=== PATIENT | female | born 1975 | race Caucasian/White ===

== ENCOUNTER 2019-07-01 12:37 | Outpatient (CLI) | payer BC, SELFPAY ==
--- NOTE | ~2019-07-01 | US_ITS ---
EXAMINATION: US venous doppler LE RT DATE: 07/01/2019 13:50 INDICATION: Right lower limb pain. TECHNIQUE: Grayscale ultrasound images without and with compression and Doppler ultrasound images of the right lower extremity veins were obtained. COMPARISON: None. FINDINGS: The visualized portions of right common femoral vein, profunda (deep) femoral vein, femoral vein, pop liteal vein, peroneal veins, posterior tibial veins, and greater saphenous vein outflow are patent. T here is a large Medina's cyst. IMPRESSION: 1. No deep venous thrombosis. 2. Large right-sided Medina's cyst. Reviewed, dictated and finalized at location A.
== END 2019-07-01 12:38 | disposition home or self-care (01) ==
LOC: ANHIMG 12:50
DX: M25.561 Pain in right knee (principal); M71.21 Synovial cyst of popliteal space [Baker], right knee
CPT/HCPCS: 93971

== ENCOUNTER 2019-07-13 13:34 | Outpatient (CLI) | payer BC, SELFPAY ==
--- NOTE | ~2019-07-13 | MR_ITS ---
EXAMINATION: MR knee RT wo con DATE: 07/13/2019 14:46 INDICATION: Synovial cyst of the right popliteal space. Right knee pain. TECHNIQUE: Magnetic resonance imaging (MRI) of the right knee was performed without intravenous contr ast. Sequences included coronal PD-weighted FSE, coronal PD-weighted FS FSE, sagittal T2-weighted FS E, sagittal PD-weighted FS FSE and axial PD weighted fat saturated FSE. COMPARISON: None. FINDINGS: Evaluation, particularly of the menisci and cartilage in the medial and lateral compartments and to a lesser degree in the patellofemoral compartment is significantly limited by motion blurring or artif act to some degree on all of the sagittal and coronal sequences. Medial compartment: Medial meniscus is normal. No definitive chondromalacia in the medial compartment. Lateral compartment: Likely tear of the lateral meniscus with complex appearance at the anterior horn and with longitudina l horizontal configuration at the posterior horn. Extensive high-grade chondromalacia with cartilage loss, irregular cortical contour and subarticular edema along the anterior weightbearing lateral femo ral condyle and juxtaposed central to lateral aspect of the lateral tibial plateau. Patellofemoral compartment: Deep chondral ulceration and fissuring with underlying subarticular edema at the lateral patellar fac et and apical ridge. Deep chondral fissuring without degenerative subarticular changes at the cephala d aspect of the lateral trochlea. Ligaments and tendons: Anterior and posterior cruciate ligaments are normal. The medial collateral ligament and fibular breana ateral ligament complex are normal. The extensor mechanism is normal. The visualized medial and later al hamstring tendons as well as the iliotibial band are normal. Fluid: Large right knee joint effusion. There is a partial suprapatellar plical band. Mild synovitis at the suprapatellar pouch and along the margins of Hoffa's fat pad. No loose osteochondral bodies identifie d. Additional mild synovitis within a large Medina's cyst which measures 7.2 x 2.9 x 3.4 cm. Osseous/other: 3 mm lateral patellar subluxation. Alignment is otherwise normal. No fracture or pathologic marrow re placing process. IMPRESSION: 1. Evaluation particularly of the menisci and cartilage is significantly limited by motion. 2. 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 3. Additional high-grade patellofemoral chondromalacia. 4. Likely reactive large right knee joint effusion. 5. Large Medina's cyst. Reviewed, dictated and finalized at location A. IMPRESSION: 1. Evaluation particularly of the menisci and cartilage is significantly limite d by motion. 2. 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 3. Additional high-grade patellofemoral chondromalacia. 4. Likely reactive large right knee joint effusion. 5. Large Medina's cyst.
== END 2019-07-13 13:40 | disposition home or self-care (01) ==
DX: M71.21 Synovial cyst of popliteal space [Baker], right knee (principal); S83.281A Other tear of lateral meniscus, current injury, right knee, initial encounter; M94.261 Chondromalacia, right knee; M25.461 Effusion, right knee
CPT/HCPCS: 73721

== ENCOUNTER 2019-07-24 15:14 | Emergency (ER) | payer BC, SELFPAY ==
[2019-07-24 15:30] VITALS: BP 154/103; PULSE 84; RESP 20; TEMP 36.6; O2SAT 97
--- NOTE | 2019-07-24 16:02 | ED.FEMALEGU ---
HPI - Female Genitourinary General Chief complaint: Urogenital-Female Stated complaint: uti Time Seen by Provider: 07/24/19 16:05 Source: patient and RN notes reviewed Mode of arrival: ambulatory Limitations: no limitations History of Present Illness HPI Narrative: 23-year-old female presents with concern for urine frequency, urgency, suprapubic pressure. Reports symptoms started this morning. She denies fever, flank pain, general malaise, nausea, vomiting. Reports discolored urine MD elicited complaint: UTI Related Data Home Medications Medication Instructions Recorded Confirmed cetirizine mg 07/24/19 ergocalciferol (vitamin D2) 07/24/19 ergocalciferol (vitamin D2) 07/24/19 [Vitamin D2] exemestane 07/24/19 omeprazole 07/24/19 potassium chloride meq PO 07/24/19 Allergies Allergy/AdvReac Type Severity Reaction Status Date / Time Penicillins AdvReac Mild VOMITING Verified 07/24/19 15:36 ERYTHROMYCIN LACTOBIONATE Allergy Mild VOMITING Uncoded 07/24/19 15:36 Review of Systems Review of Systems: Narrative: CONSTITUTIONAL: Denies malaise, chills, sweats, or fever. CARDIOVASCULAR: Denies chest pain, palpitations, or edema. RESPIRATORY: Denies cough or dyspnea. GASTROINTESTINAL: Denies abdominal pain, nausea, vomiting, diarrhea, bloody, or mucous stools. GENITOURINARY: Denies dysuria. Reports suprapubic pressure, frequency, urgency SKIN: Denies rash or itching. MUSCULOSKELETAL: Denies myalgia. All systems reviewed & are unremarkable except as noted in HPI and below PMFSH Social History Social History Gender identity (if verbalized by the patient): Female Comments At time of signature, agree with nursing past medical, surgical, social and family history. There is no relevant family history pertinent to the presenting complaint Exam Narrative: Exam Narrative: GENERAL: Well-appearing, well-nourished, and in no acute distress. HEAD: Normocephalic. EYES: PERRLA, conjunctivae clear. NECK: Supple. No lymphadenopathy CHEST: Clear to auscultation. No respiratory distress. HEART: Regular rate and rhythm. No murmur heard. Normal peripheral pulses. ABDOMEN: Soft, nontender upon palpation, nondistended, normal active bowel sounds, no palpable or pulsatile masses, no guarding. No CVA tenderness SKIN: Warm, dry, no rash. NEURO: Alert and oriented x3. PSYCH: Normal mood and affect Course Course Emergency Course: Patient is aware of diagnosis, understands and agrees to treatment plan. Anticipatory guidance given. Patient agrees to follow-up as directed and is aware of reasons to seek care at the emergency department. Portions of this record may have been created with voice recognition software Vital Signs Vital signs: Vital Signs Temperature 98 F 07/24/19 15:30 Pulse Rate 84 07/24/19 15:30 Respiratory Rate 20 07/24/19 15:30 Blood Pressure 154/103 H 07/24/19 15:30 Pulse Oximetry 97 07/24/19 15:30 Temperature 98 F 07/24/19 15:30 Pulse Rate 84 07/24/19 15:30 Respiratory Rate 20 07/24/19 15:30 Blood Pressure 154/103 H 07/24/19 15:30 Pulse Oximetry 97 07/24/19 15:30 Reviewed. MDM - Female Genitourinary MDM Narrative Medical decision making narrative: Exam findings show no acute concerns or changes; patient is non-toxic appearing and is in no distress. Patient is appropriate for outpatient treatment and follow-up. Differential Diagnosis Differential diagnosis: Likely urinary tract infection, vaginitis and cystitis Lab Data Labs: Urine Glucose Negative Reference Range: Negative Urine Bilirubin Negative Reference Range: Negative Urine Ketone Negative Reference Range: Negative Urine Specific [place] 1.030 Reference Range:1.001-1.035 Urine Blood 3+ Reference Range: Negative * * Urine pH
== END 2019-07-24 16:19 | disposition home or self-care (01) ==
PROVIDERS: Emergency Provider Nurse Practitioner
DX: N39.0 Urinary tract infection, site not specified (principal); I10 Essential (primary) hypertension; Z85.3 Personal history of malignant neoplasm of breast
CPT/HCPCS: 81003; 87086; 87088; 99213; G0463

== ENCOUNTER 2019-09-02 11:00 | Outpatient (RCR) | payer BC, SELFPAY ==
--- NOTE | 2019-08-22 15:46 | PTOPEVAL ---
PHYSICAL THERAPY EVALUATION AND PLAN OF CARE Thank you for referring Angelica Meyer to [facility]. I recommend Angelica participate in physical therapy 2x/week for 4 weeks followed by re-assessment to determine further skilled PT needs. Please review, sign, date and return this plan of care XAVI. I agree with and certify that the following plan of care is medically necessary. Referring Physician Date Evaluation Outpatient Past Medical History Cardiovascular History Hx Hypertension Yes Genitourinary History Hx Urinary Tract Infection Yes Musculoskeletal History Hx Orthopedic Surgery Yes: carpal Tunnel Reproductive History Hx Hysterectomy Yes Hx Other Reproductive Disorders Yes: Breast CA Psychosocial History Hx Anxiety Yes Other History Hx Cancer Yes: breast, 2018 Diagnosis right knee pain Onset 02/2019 Subjective Information Dece 2019 was experiencing Query Text:As Reported By Patient/ right knee pain. Noticed a Family lump in the back of the knee that was diagnosed as a Medina' s cyst. The pain eased until when the pain became unbearable and further studies revealed continued Medina's cyst, torn meniscus, and OA. On July 19, she received an injection and the next day she felt severe pain. On August 15 she received a 2nd cortisone injection on the medial side of the knee. This injection seems to have helped . She experiences less knee locking and less stiffness. Reports that prior to the pain starting she was walking 2-3 miles 3-4x/week and she does not feel comfortable or safe performing that distance at this time. Right Knee(s) Reported Pain Level 4 Pain Frequency Chronic,Intermittent Other Pain Description stiff Pain Aggravating Factors Walking Pain Score Pain Score 4: Self Report Lower Extremity Range of Motion Knee Range of Motion Right Knee Flexion Range of Motion - Active 120 Knee Extension Range of Motion - Active -12 Query Text: Lower Extremity Muscle Strength Testing Hip Strength Right Hip Flexion Strength 4+ Good + Hip Extension Strength 3 Fair H
--- NOTE | 2019-08-30 08:47 | PCPTNOTE ---
Patient called & cancelled scheduled appointment this date due to family emergency.
--- NOTE | 2019-09-05 09:22 | PCPTNOTE ---
Patient called & cancelled scheduled appointment this date due to sick child.
--- NOTE | 2019-09-30 08:40 | PCPTNOTE ---
PHYSICAL THERAPY DISCHARGE NOTE Patient:Angelica Meyer Date of :1975 Angelica has not returned for any further treatments since 09/02/2019, therefore she will be discharged at this time. Her initial visit was on 08/22/2019 and she attended the evaluation and 3 treatments and she cancelled 2 visits. During her treatments we perform leuko-taping to the right knee for patellar tracking as well as right LE strengthening, particularly quadriceps and gluteus medius strengthening. She was provided with home exercise program. The goals have not been assessed. Thank you for referring this patient to [facility]. Please review, sign, date and return this discharge summary XAVI. I have been updated about the patient's current status and I agree with discharge from the above service at this time. Referring Physician Date
== END 2019-10-04 13:15 | disposition home or self-care (01) ==
LOC: ANHPT 11:00
DX: M25.561 Pain in right knee (principal); M22.41 Chondromalacia patellae, right knee
CPT/HCPCS: 97110; 97140; 97161

== ENCOUNTER 2019-09-21 12:53 | Outpatient (CLI) | payer BC, SELFPAY ==
--- NOTE | ~2019-09-21 | DEXA_ITS ---
Bone Density Report Name: Angelica Meyer Age: 43 Sex: Female Ethnicity: White Date of : 1975 Indication: postmenopausal; height loss; prior fracture; cancer; hysterectomy; Referring Provider: PHYSICIAN NOT ON STAFF Study: Bone densitometry was performed. Exam Date: September 21, 2019 Accession number: [id number] Bone Density: Region BMD T-score Z-score Classification AP Spine (L1-L4) 0.810 -2.2 -1.7 Osteopenia Femoral Neck (Left) 0.622 -2.0 -1.6 Osteopenia Total Hip (Left) 0.818 -1.0 -0.7 Normal Total Hip Bilateral Avg 0.827 -0.9 -0.7 Normal Femoral Neck (Right) 0.704 -1.3 -0.9 Osteopenia Total Hip (Right) 0.835 -0.9 -0.6 Normal World Health Organization criteria for BMD impression classify patients as: Normal (T-score at or above -1.0), Osteopenia (T-score between -1.0 and -2.5), or Osteoporosis (T-score at or below -2.5). 10-year Fracture Risk(1): Major Osteoporotic Fracture 5.9% Hip Fracture 1.6% Reported Risk Factors: [place] (), Neck BMD=0.622, BMI=54.5, previous fracture, smoking (1) FRAX(R) Version 3.08. Fracture probability calculated for an untreated patient. Fracture probability may be lower if the patient has received treatment. Clinical Information Provided by Patient: Has had a low trauma fracture Smokes Has used the following medications: Vitamin D Has the following medical conditions: Cancer, Hysterectomy Patient maximum height was 60 Menopause Age: 42 Onset of menses at age 12 Number of children 3 Impression: The patient has low bone mass, based on the Total Spine T-score. The patient has an estimated ten-year risk of hip fracture of 1.6% and an estimated ten-year risk of major fracture of 5.9%, based on the WHO FRAX algorithm. The patient has risk factors, including: smoking, previous fracture. Discussion: BONE DENSITY IS LOW AT ONE OR MORE SKELETAL SITES. This patient's lowest T-score is low at one or more skeletal sites. It meets the World Health Organization's (WHO) criteria for ?low bone mass? (T-score between -1.0 and -2.5). The patient's 10-year risk of fracture as calculated by FRAX is less than the threshold where pharmacological therapy is recommended by the National Osteoporosis Foundation (NOF). However, all treatment decisions require clinical judgment and consideration of individual patient factors, including patient preferences, comorbidities, previous drug use, risk factors not captured in the FRAX model (e.g., frailty, falls, vitamin D deficiency, increased bone turnover, interval significant decline in bone density) and possible under or overestimation of fracture risk by FRAX. The patient should follow a healthful lifestyle (good nutrition with adequate calcium and vitamin D, and appropriate weight-bearing exercise). Follow-Up: Consider repeating thi
== END 2019-09-21 12:54 | disposition home or self-care (01) ==
LOC: ANHIMG 12:57
DX: C50.412 Malignant neoplasm of upper-outer quadrant of left female breast (principal); Z17.0 Estrogen receptor positive status [ER+]; M85.88 Other specified disorders of bone density and structure, other site; M85.852 Other specified disorders of bone density and structure, left thigh; M85.851 Other specified disorders of bone density and structure, right thigh
CPT/HCPCS: 77080

== ENCOUNTER 2019-11-19 01:35 | Outpatient (CLI) | payer BC, SELFPAY ==
[2019-11-19 19:30] LABS: SARS-CoV-2 RNA PCR Negative
== END 2019-11-19 01:36 | disposition home or self-care (01) ==
LOC: ANHCOVIDDT 01:36
PROVIDERS: Visit Provider Internal Medicine Gastroenterology
DX: Z01.812 Encounter for preprocedural laboratory examination (principal); Z20.828 Contact with and (suspected) exposure to other viral communicable diseases
CPT/HCPCS: 87635; C9803; U0003

== ENCOUNTER 2019-11-22 01:11 | Day surgery (SDC) | payer BC, SELFPAY ==
[2019-11-15 12:21] VITALS: BMI 54.6
--- NOTE | 2019-11-22 09:00 | PM.HPGS ---
History of Present Illness History of Present Illness Consent: Risks, benefits, and alternatives have been discussed and questions answered. Patient agrees to proceed with procedure. Chief complaint: Benign Neoplasm Of Colon Narrative: Angelica Meyer is a 44 year old female here with history of polyps Review of Systems Constitutional: Constitutional: Denies headache(s) and Denies weakness Eyes: Eyes: Denies blurry vision ENT: Reports Normal hearing present, Denies headache(s) and Denies neck pain Cardiovascular: Cardiovascular: Denies chest pain and Denies dyspnea Respiratory: Respiratory: Denies dyspnea Gastrointestinal: Gastrointestinal: Reports no additional gastrointestinal complaints Genitourinary: Genitourinary: Denies dysuria Musculoskeletal: Musculoskeletal: Denies neck pain Integumentary/Breasts: Skin/Breast: Denies dry skin Neurologic: Reports Normal hearing present, Denies headache(s) and Denies weakness Psychiatric: Psychiatric: Denies anxiety Endocrine: Endocrine: Denies change in body appearance Hematologic/Lymphatic: Hematologic/Lymphatic: Denies easy bleeding Allergic/Immunologic: Allergic/Immunologic: Denies urticaria PMFSH Past Medical History Medical History (Updated 09/29/19 @ 14:48 by Trevor Fatima MD) Adenomatous colon polyp Allergic rhinitis GERD (gastroesophageal reflux disease) Gout HCC (hepatocellular carcinoma) Hypertension Kidney disease Morbid obesity Pulmonary embolism Urolithiasis Vitamin D deficiency Surgical History Surgical History (Updated 09/21/19 @ 10:28 by Korin Tilley) H/O cardiac catheterization H/O left breast biopsy H/O lymph node biopsy H/O partial mastectomy H/O tubal ligation H/O: hysterectomy History of carpal tunnel release History of lumpectomy History of salpingo-oophorectomy History of sleeve gastrectomy Hx of lithotripsy Family History Family History (Updated 09/21/19 @ 10:35 by Korin Tilley) Mother Hypertension Crohn disease Father Hypertension Heart disease High cholesterol Other Cancer of brain Other Colon cancer Stomach cancer Grandparent Diabetes mellitus Social History Social History (Updated 11/15/19 @ 12:27 by Anni Christine RN) Smoking packs per day: 0.5 Smoking cigarettes per day: 10.0 Years smoked: 25 Smoking pack-years: 12.50 Smoking status: Former smoker Alcohol intake: never Substance use: current Substance use type: marijuana 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 Gender identity (if verbalized by the patient): Female Meds Home Medications and Allergies Home Medications Medication Instructions Recorded Confirmed Type cetirizine 10 mg PO DAILY 07/24/19 11/15/19 History ergocalciferol (vitamin D2) 50,000 unit PO WEEKLY 07/24/19 11/15/19 History [Vitamin D2] omeprazole 20 mg PO DAILY 07/24/19 11/15/19 History potassium chloride 20 meq PO DAILY 07/24/19 11/15/19 History cyanocobalamin (vitamin B-12) 1,000 mcg PO DAILY 09/21/19 11/15/19 History 1,000 mcg tablet exemestane 25 mg tablet 25 mg PO DAILY 09/21/19 11/15/19 History trazodone 50 mg PO DAILY 11/15/19 11/15/19 History triamterene-hydrochlorothiazid 1 tablet PO DAILY 11/15/19 11/15/19 History Allergies Allergy/AdvReac Type Severity Reaction Status Date / Time erythromycin base AdvReac Mild Vomiting Verified 11/21/19 11:29 Penicillins AdvReac Mild VOMITING Verified 11/15/19 12:28 venlafaxine [From Effexor] AdvReac Mild Confusion Verified 11/21/19 11:30 Exam Const: General: comfortable and no acute distress HENMT: General nose exam: Normal nares present Eyes: General: appearance normal, both eyes and all related structures Neck: Neck: no JVD Resp: Auscultation: clear to auscultation bilaterally Cardio: Rate: regular rate Rhythm: regular rhythm GI: Inspection: non-distended GI Palp: Yes Soft to palpation Skin: General skin exam:
[2019-11-22 10:47] VITALS: BP 149/97; PULSE 65; RESP 17; TEMP 36.8; O2SAT 97; BMI 53.5
--- NOTE | 2019-11-22 10:57 | WPDANESEPPF ---
Anes - Initial Pre Proc Eval Procedure: Operation Date: 11/22/19 12:00 Proposed Procedures p Screening Colonoscopy - Trevor Fatima MD Date/Time: 11/22/19 10:57 Surgeon: Trevor Fatima MD Pre Op Diagnosis: Benign Neoplasm Of Colon Patient Data Age: 44 Gender: F Height: 5 ft Weight: 124.4 kg Last Vital Signs Temp 98.3 F 11/22/19 10:47 Pulse 65 11/22/19 10:47 Resp 17 11/22/19 10:47 BP 149/97 H 11/22/19 10:47 Pulse Ox 97 11/22/19 10:47 Allergies Allergy/AdvReac Type Severity Reaction Status Date / Time erythromycin base AdvReac Mild Vomiting Verified 11/21/19 11:29 Penicillins AdvReac Mild VOMITING Verified 11/15/19 12:28 venlafaxine [From Effexor] AdvReac Mild Confusion Verified 11/21/19 11:30 Home Medications Medication Instructions Recorded Confirmed Type cetirizine 10 mg PO DAILY 07/24/19 11/15/19 History ergocalciferol (vitamin D2) 50,000 unit PO WEEKLY 07/24/19 11/15/19 History [Vitamin D2] omeprazole 20 mg PO DAILY 07/24/19 11/15/19 History potassium chloride 20 meq PO DAILY 07/24/19 11/15/19 History cyanocobalamin (vitamin B-12) 1,000 mcg PO DAILY 09/21/19 11/15/19 History 1,000 mcg tablet exemestane 25 mg tablet 25 mg PO DAILY 09/21/19 11/15/19 History trazodone 50 mg PO DAILY 11/15/19 11/15/19 History triamterene-hydrochlorothiazid 1 tablet PO DAILY 11/15/19 11/15/19 History Patient hx anesthesia problems: none Family hx anesthesia problems: none PMFSH Past Medical History Medical History (Updated 09/29/19 @ 14:48 by Trevor Fatima MD) Adenomatous colon polyp Allergic rhinitis GERD (gastroesophageal reflux disease) Gout HCC (hepatocellular carcinoma) Hypertension Kidney disease Morbid obesity Pulmonary embolism Urolithiasis Vitamin D deficiency Surgical History Surgical History (Updated 09/21/19 @ 10:28 by Korin Tilley) H/O cardiac catheterization H/O left breast biopsy H/O lymph node biopsy H/O partial mastectomy H/O tubal ligation H/O: hysterectomy History of carpal tunnel release History of lumpectomy History of salpingo-oophorectomy History of sleeve gastrectomy Hx of lithotripsy Family History Family History (Updated 09/21/19 @ 10:35 by Korin Tilley) Mother Hypertension Crohn disease Father Hypertension Heart disease High cholesterol Other Cancer of brain Other Colon cancer Stomach cancer Grandparent Diabetes mellitus Social History Social History (Updated 11/15/19 @ 12:27 by Anni Christine RN) Smoking packs per day: 0.5 Smoking cigarettes per day: 10.0 Years smoked: 25 Smoking pack-years: 12.50 Smoking status: Former smoker Alcohol intake: never Substance use: current Substance use type: marijuana 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 Questions were solicited and answers provided to the satisfaction of the patient/family/POA.
[2019-11-22] MEDS: LACTATED RINGERS 1,000 ML 150 ML IV CONT (11:04)
[2019-11-22 12:57] VITALS: BP 102/65; PULSE 86; RESP 26; O2SAT 95
[2019-11-22 13:07] VITALS: BP 118/69; PULSE 66; RESP 25; O2SAT 100
[2019-11-22 13:17] VITALS: BP 130/72; PULSE 61; RESP 18; O2SAT 100
== END 2019-11-22 13:22 | disposition home or self-care (01) ==
PROVIDERS: Visit Provider Internal Medicine Gastroenterology
PROC: 0DJD8ZZ Inspection of Lower Intestinal Tract, Via Natural or Artificial Opening Endoscopic (ICD-10-PCS; CPT 45378; principal; 2019-11-22 12:00)
DX: Z12.11 Encounter for screening for malignant neoplasm of colon (principal); K64.8 Other hemorrhoids; Z86.010 Personal history of colon polyps; I10 Essential (primary) hypertension; E66.01 Morbid (severe) obesity due to excess calories; Z68.43 Body mass index [BMI] 50.0-59.9, adult; Z98.84 Bariatric surgery status; I25.10 Atherosclerotic heart disease of native coronary artery without angina pectoris; J30.9 Allergic rhinitis, unspecified; E55.9 Vitamin D deficiency, unspecified; Z86.711 Personal history of pulmonary embolism; Z87.891 Personal history of nicotine dependence; F12.90 Cannabis use, unspecified, uncomplicated; Z85.3 Personal history of malignant neoplasm of breast; Z85.05 Personal history of malignant neoplasm of liver; Z90.10 Acquired absence of unspecified breast and nipple; Z88.1 Allergy status to other antibiotic agents; Z88.0 Allergy status to penicillin
CPT/HCPCS: 45378; J2001; J2704; J7120

== ENCOUNTER 2020-05-31 17:14 | Emergency (ER) | payer BC, SELFPAY ==
--- NOTE | ~2020-05-31 | XR_ITS ---
XR shoulder LT min 2V 05/31/2020 18:11 INDICATION: Left shoulder pain PROCEDURE: 4 views left shoulder COMPARISON: No prior studies for comparison. FINDINGS: Fracture, dislocation or subluxation is not identified. The soft tissues appear within norm al limits. No foreign bodies are identified. IMPRESSION: 1: NO ACUTE BONE OR JOINT ABNORMALITY IDENTIFIED. Reviewed, dictated and finalized at location A. IN[facility]
--- NOTE | ~2020-05-31 | XR_ITS ---
EXAMINATION: XR chest 2V 05/31/2020 18:11 INDICATION: Left-sided chest pain PROCEDURE: 2 view chest COMPARISON: No prior studies for comparison. FINDINGS: The lungs are clear. The cardiomediastinal silhouette is within normal limits. There are no pleural effusions. There is no pneumothorax suspected. IMPRESSION: 1: NO ACUTE CARDIOPULMONARY DISEASE. Reviewed, dictated and finalized at location A. [facility] [employer]
[2020-05-31 17:21] VITALS: BP 154/114; PULSE 75; RESP 14; TEMP 36.5; O2SAT 99
--- NOTE | 2020-05-31 17:24 | ECG_ITS ---
Measurements Intervals [place] Rate: 75 P: 23 TX: 173 QRS: 26 QRSD: 88 T: -11 QT: 379 QTc: 425 Interpretive Statements SINUS RHYTHM VOLTAGE CRITERIA FOR LVH BORDERLINE ST-T WAVE ABNORMALITY- ANTEROLAT/INF LEADS BORDERLINE ECG Electronically Signed On 05-31-2020 18:50:40 POLYMERIZATION SUPERVISOR by Carlos Hastings D.O.
[2020-05-31 17:37] VITALS: PULSE 75; RESP 17; TEMP 36.8; O2SAT 100
--- NOTE | 2020-05-31 17:49 | ED.CHESTPAIN ---
HPI - Chest Pain General Chief Complaint: Chest Pain Stated Complaint: left rib pain, left arm pain Time Seen by Provider: 05/31/20 17:30 Source: patient Mode of arrival: ambulatory Limitations: no limitations History of Present Illness HPI narrative: This is a 44-year-old female that presents to the emergency department for left posterior shoulder pain x1 week. Reports the pain is sharp in nature. It is worse with certain movement. No known injury or trauma. Denies fever, cough, anterior chest pain, or shortness of breath. Related Data Home Medications Medication Instructions Recorded Confirmed cetirizine 10 mg PO DAILY 07/24/19 11/15/19 ergocalciferol (vitamin D2) 50,000 unit PO WEEKLY 07/24/19 11/15/19 [Vitamin D2] omeprazole 20 mg PO DAILY 07/24/19 11/15/19 potassium chloride 20 meq PO DAILY 07/24/19 11/15/19 cyanocobalamin (vitamin B-12) 1,000 mcg PO DAILY 09/21/19 11/15/19 1,000 mcg tablet exemestane 25 mg tablet 25 mg PO DAILY 09/21/19 11/15/19 trazodone 50 mg PO DAILY 11/15/19 11/15/19 triamterene-hydrochlorothiazid 1 tablet PO DAILY 11/15/19 11/15/19 Allergies Allergy/AdvReac Type Severity Reaction Status Date / Time erythromycin base AdvReac Mild Vomiting Verified 11/21/19 11:29 Penicillins AdvReac Mild VOMITING Verified 11/15/19 12:28 venlafaxine [From Effexor] AdvReac Mild Confusion Verified 11/21/19 11:30 Review of Systems Review of Systems: Narrative: CONSTITUTIONAL: Denies fever CARDIOVASCULAR: Denies chest pain, or edema. RESPIRATORY: Denies cough or dyspnea. All systems reviewed & are unremarkable except as noted in HPI and below PMFSH Past Medical History Medical History (Updated 05/31/20 @ 19:52 by Shanti Mccarthy PA-C) Adenomatous colon polyp Allergic rhinitis GERD (gastroesophageal reflux disease) Gout HCC (hepatocellular carcinoma) Hypertension Kidney disease Morbid obesity Pulmonary embolism Urolithiasis Vitamin D deficiency Surgical History Surgical History (Updated 09/21/19 @ 10:28 by Korin Tilley) H/O cardiac catheterization H/O left breast biopsy H/O lymph node biopsy H/O partial mastectomy H/O tubal ligation H/O: hysterectomy History of carpal tunnel release History of lumpectomy History of salpingo-oophorectomy History of sleeve gastrectomy Hx of lithotripsy Family History Family History (Updated 09/21/19 @ 10:35 by Korin Tilley) Mother Hypertension Crohn disease Father Hypertension Heart disease High cholesterol Other Cancer of brain Other Colon cancer Stomach cancer Grandparent Diabetes mellitus Social History Social History (Updated 11/15/19 @ 12:27 by Anni Christine RN) Smoking packs per day: 0.5 Smoking cigarettes per day: 10.0 Years smoked: 25 Smoking pack-years: 12.50 Smoking status: Former smoker Alcohol intake: never Substance use: current Substance use type: marijuana 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 HEAD: Normocephalic, atraumatic. EYES: EOMI. ENT: Nares clear, no rhinorrhea or epistaxis. Mucous membranes moist. Oropharynx without tonsillar hypertrophy exudate or other lesions. Bilateral TMs pearly ballesteros non-bulging NECK: Supple. No adenopathy or masses. No carotid bruits or JVD CHEST: Clear to auscultation. No respiratory distress. No wheezes rales or rhonchi HEART: Regular rate and rhythm. No murmur heard. Normal peripheral pulses. BACK: Tender to palpation of left parascapular musculature EXTREMITIES: Normal range of motion. No edema. SKIN: Warm, dry, no rash. NEURO: No focal deficits. Alert and oriented x3. PSYCH: Normal mood and affect Course Vital Signs Vital signs: Vital Signs Temperature 97.7 F 05/31/20 17:21 Pulse Rate 75 05/31/20 17:21 Respiratory Rate 14 05/31/20 17:21 Blood Press
[2020-05-31 18:01] LABS: Prothrombin Time 13.3 Seconds (11.1-14.7)
[2020-05-31 18:02] LABS: Partial Thromboplastin Time 24.6 SECONDS (22.3-36.8)
[2020-05-31 18:08] LABS: Anion Gap 7 mmol/L (8-16); Blood Urea Nitrogen 19 mg/dL (7-17); Calcium 9.3 mg/dL (8.4-10.2); Carbon Dioxide 32 mmol/L (22-30); Chloride 98 mmol/L (98-107); Estimated CRCL calculation 76 ml/min; Estimated Glomerular Filt Rate 60; Glucose 116 mg/dL (65-105); Potassium 3.4 mmol/L (3.4-5.0); Sodium 137 mmol/L (137-145)
[2020-05-31 18:15] LABS: Basophils Percent Auto 0.7 % (0.2-1.2); Eosinophils Absolute Auto 0.1 K/mm3 (0-0.3); Eosinophils Percent Auto 2.4 % (0-4.4); Hematocrit 43.7 % (37.0-47.0); Hemoglobin 14.8 g/dL (12.0-15.0); Immature Granulocyte Absolute 0.02 K/mm3 (0.00-0.031); Immature Granulocyte Percent A 0.4 % (0-0.5); Lymphocytes Absolute Auto 1.67 K/mm3 (0.9-3.2); Lymphocytes Percent Auto 30.5 % (18.3-44.2); Mean Corpuscular HGB Conc 33.9 g/dl (32-36); Mean Corpuscular Volume 85.5 fl (80-100); Mean Platelet Volume 10.4 fl (7.4-10.4); Monocytes Absolute Auto 0.5 K/mm3 (0.1-0.6); Monocytes Percent Auto 8.4 % (2.6-8.5); Neutrophils Absolute Auto 3.2 K/mm3 (1.3-6.7); Neutrophils Percent Auto 57.6 % (45.5-73.1); Platelet Count Result 241 k/mm3 (150-375); Red Blood Count 5.11 M/mm3 (4.2-5.4); Red Cell Distribution Width 12.3 % (11.5-14.5); White Blood Count 5.5 K/mm3 (4.5-10.0)
[2020-05-31 18:16] LABS: Troponin I < 0.012 ng/mL (0.000-0.034)
[2020-05-31] MEDS: ACETAMINOPHEN 500 MG TABLET 1000 MG PO (18:16)
[2020-05-31] MEDS: diazePAM INJ (*CRX) 10 MG/2 ML SYRINGE 5 MG IV PUSH (18:17)
[2020-05-31] MEDS: ASPIRIN 81 MG CHEWABLE TABLET 324 MG PO (18:17)
[2020-05-31 18:18] VITALS: BP 162/84; PULSE 76; RESP 16
[2020-05-31 19:05] LABS: D Dimer 0.34 ug/mL (<0.48)
[2020-05-31 20:01] VITALS: BP 137/98; PULSE 68; RESP 16; TEMP 36.8; O2SAT 98
== END 2020-05-31 20:02 | disposition home or self-care (01) ==
PROVIDERS: Physician Assistant; Emergency Provider Emergency Medicine; PCP Nurse Practitioner Family
DX: S46.912A Strain of unspecified muscle, fascia and tendon at shoulder and upper arm level, left arm, initial encounter (principal); K21.9 Gastro-esophageal reflux disease without esophagitis; M10.9 Gout, unspecified; I10 Essential (primary) hypertension; Z86.711 Personal history of pulmonary embolism; N28.9 Disorder of kidney and ureter, unspecified; E55.9 Vitamin D deficiency, unspecified; Z86.010 Personal history of colon polyps; Z90.10 Acquired absence of unspecified breast and nipple; Z87.891 Personal history of nicotine dependence; Z85.3 Personal history of malignant neoplasm of breast; Z98.84 Bariatric surgery status; E66.01 Morbid (severe) obesity due to excess calories; Z68.43 Body mass index [BMI] 50.0-59.9, adult; R94.31 Abnormal electrocardiogram [ECG] [EKG]; X58.XXXA Exposure to other specified factors, initial encounter
CPT/HCPCS: 36415; 71046; 73030; 80048; 84484; 85025; 85380; 85610; 85730; 93005; 96374; 99284; A9270; J3360

== ENCOUNTER 2020-12-05 17:36 | Emergency (ER) | payer BC, SELFPAY ==
--- NOTE | 2020-12-05 17:38 | ED.URI ---
HPI - URI/Sore Throat General Chief Complaint: Upper Respiratory Infection Stated Complaint: Coughing, shortness of breath, headache Time Seen by Provider: 12/05/20 18:12 Source: patient and RN notes reviewed Mode of arrival: ambulatory Limitations: no limitations History of Present Illness HPI Narrative: 45-year-old female presents with concern for 3 to 4-day history of nasal congestion, nasal drainage, cough, headache, chills. Reports [id number] cold medicines not treating her symptoms. She has been vaccinated for Covid. She denies shortness of breath, body aches, sweats, fever. MD elicited complaint: cough Related Data Home Medications Medication Instructions Recorded Confirmed cetirizine 10 mg PO DAILY 07/24/19 12/05/20 ergocalciferol (vitamin D2) 50,000 unit PO WEEKLY 07/24/19 12/05/20 [Vitamin D2] omeprazole 20 mg PO DAILY 07/24/19 12/05/20 exemestane 25 mg tablet 25 mg PO DAILY 09/21/19 12/05/20 trazodone 50 mg PO DAILY 11/15/19 12/05/20 triamterene-hydrochlorothiazid 1 tablet PO DAILY 11/15/19 12/05/20 amlodipine 5 mg PO DAILY 12/05/20 12/05/20 Allergies Allergy/AdvReac Type Severity Reaction Status Date / Time erythromycin base AdvReac Mild Vomiting Verified 12/05/20 18:12 Penicillins AdvReac Mild VOMITING Verified 12/05/20 18:12 venlafaxine [From Effexor] AdvReac Mild Confusion Verified 12/05/20 18:12 Review of Systems Review of Systems: CONSTITUTIONAL: Denies malaise, sweats, or fever. Reports chills EYES: Denies visual changes, redness, or discharge. ENT: Reports rhinorrhea, congestion. Denies sinus pain, otalgia and sore throat. CARDIOVASCULAR: Denies chest pain, palpitations, or edema. RESPIRATORY: Reports cough. Denies dyspnea. GASTROINTESTINAL: Denies abdominal pain, nausea, vomiting, diarrhea SKIN: Denies rash or itching. MUSCULOSKELETAL: Denies myalgia. NEUROLOGIC: Reports headache. All systems reviewed & are unremarkable except as noted in HPI and below PMFSH Past Medical History Medical History (Updated 12/05/20 @ 18:19 by Mable Aguillon NP) Adenomatous colon polyp Allergic rhinitis GERD (gastroesophageal reflux disease) Gout HCC (hepatocellular carcinoma) Hypertension Kidney disease Morbid obesity Pulmonary embolism Urolithiasis Vitamin D deficiency Surgical History Surgical History (Updated 09/21/19 @ 10:28 by Korin Tilley) H/O cardiac catheterization H/O left breast biopsy H/O lymph node biopsy H/O partial mastectomy H/O tubal ligation H/O: hysterectomy History of carpal tunnel release History of lumpectomy History of salpingo-oophorectomy History of sleeve gastrectomy Hx of lithotripsy Family History Family History (Updated 09/21/19 @ 10:35 by Korin Tilley) Mother Hypertension Crohn disease Father Hypertension Heart disease High cholesterol Other Cancer of brain Other Colon cancer Stomach cancer Grandparent Diabetes mellitus Social History Social History (Updated 11/15/19 @ 12:27 by Anni Christine RN) Smoking packs per day: 0.5 Smoking cigarettes per day: 10.0 Years smoked: 25 Smoking pack-years: 12.50 Smoking status: Former smoker Alcohol intake: never Substance use: current Substance use type: marijuana 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 There is no relevant family history pertinent to the presenting complaint Exam Narrative: GENERAL: Well-appearing, well-nourished, and in no acute distress. HEAD: Normocephalic EYES: PERRLA, conjunctivae clear ENT: Nares clear, turbinates edematous and erythematous, clear discharge. Mucous membranes moist. TM pearly ballesteros with dull light reflex bilaterally; no tragal tenderness. Oropharynx erythematous without lesions. Tonsils not enlarged and without exudate, no drooling, no hoars
[2020-12-05 17:47] VITALS: BP 151/102; PULSE 71; RESP 20; TEMP 37.4; O2SAT 97
[2020-12-07 19:38] LABS: SARS-CoV-2 RNA PCR Negative
== END 2020-12-05 18:30 | disposition home or self-care (01) ==
PROVIDERS: Emergency Provider Nurse Practitioner; PCP Nurse Practitioner Family
DX: J40 Bronchitis, not specified as acute or chronic (principal); J32.9 Chronic sinusitis, unspecified; I10 Essential (primary) hypertension; Z87.891 Personal history of nicotine dependence; Z20.822 Contact with and (suspected) exposure to COVID-19
CPT/HCPCS: 87426; 99213; C9803; G0463; U0003; U0005

== ENCOUNTER 2022-02-24 14:00 | Emergency (ER) | payer BC, SELFPAY ==
[2022-02-24 14:21] VITALS: BP 159/92; PULSE 74; RESP 16; TEMP 36.8; O2SAT 98
--- NOTE | 2022-02-24 14:26 | ED.URI ---
HPI - URI/Sore Throat General Chief Complaint: Upper Respiratory Infection Stated Complaint: aches throat headache fever Time Seen by Provider: 02/24/22 14:26 History of Present Illness HPI Narrative: patient presents with body aches cough and headache symptoms started yesterday no exposure reported Related Data Home Medications Medication Instructions Recorded Confirmed ergocalciferol (vitamin D2) 1,250 50,000 unit PO WEEKLY 07/24/19 02/24/22 mcg (50,000 unit) capsule (Vitamin D2) triamterene 37.5 1 tablet PO DAILY 11/15/19 02/24/22 mg-hydrochlorothiazide 25 mg tablet amlodipine 5 mg tablet 5 mg DAILY 02/24/22 02/24/22 exemestane 25 mg tablet 25 mg DAILY 02/24/22 02/24/22 omeprazole 20 mg capsule,delayed 20 mg BID 02/24/22 02/24/22 release oxybutynin chloride 10 mg 10 mg PO DAILY 02/24/22 02/24/22 tablet,extended release 24 hr trazodone 100 mg tablet 100 mg HS 02/24/22 02/24/22 Allergies Allergy/AdvReac Type Severity Reaction Status Date / Time erythromycin base AdvReac Mild Vomiting Verified 02/24/22 14:18 Penicillins AdvReac Mild VOMITING Verified 02/24/22 14:18 venlafaxine [From Effexor] AdvReac Mild Confusion Verified 02/24/22 14:18 Review of Systems Review of Systems: CONSTITUTIONAL: Denies chills, or sweats. Reports fever and generalized body aches EYES: Denies visual changes, redness, or discharge. ENT: Denies otalgia. Reports nasal congestion runny nose and sore throat CARDIOVASCULAR: Denies chest pain, palpitations, or edema. RESPIRATORY: Denies dyspnea. Reports occasional cough GASTROINTESTINAL: Denies abdominal pain, nausea, vomiting, or diarrhea. GENITOURINARY: Denies dysuria or hematuria. SKIN: Denies rash or itching. MUSCULOSKELETAL: Denies back pain, joint pain, or myalgia. Reports generalized body aches NEUROLOGIC: Denies headache, numbness, or weakness. PSYCHIATRIC: Denies anxiety or depression. [facility] Past Medical History Medical History (Updated 02/24/22 @ 14:31 by CHETAN Schneider) Adenomatous colon polyp Allergic rhinitis GERD (gastroesophageal reflux disease) Gout HCC (hepatocellular carcinoma) Hypertension Kidney disease Morbid obesity Pulmonary embolism Urolithiasis Vitamin D deficiency Surgical History Surgical History (Updated 09/21/19 @ 10:28 by Korin Chavarria [facility]) H/O cardiac catheterization H/O left breast biopsy H/O lymph node biopsy H/O partial mastectomy H/O tubal ligation H/O: hysterectomy History of carpal tunnel release History of lumpectomy History of salpingo-oophorectomy History of sleeve gastrectomy Hx of lithotripsy Family History Family History (Updated 09/21/19 @ 10:35 by oKrin Chavarria [facility]) Mother Hypertension Crohn disease Father Hypertension Heart disease High cholesterol Other Cancer of brain Other Colon cancer Stomach cancer Grandparent Diabetes mellitus Social History Social History (Updated 11/15/19 @ 12:27 by Anni Christine RN) Smoking packs per day: 0.5 Smoking cigarettes per day: 10.0 Years smoked: 25 Smoking pack-years: 12.50 Smoking status: Former smoker Alcohol intake: never Substance use: current Substance use type: marijuana 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 There is no relevant family history pertinent to the presenting complaint Exam Narrative: The patient is a well-developed, well-nourished in no acute distress. SKIN: Skin is warm and dry without erythema, swelling or exudate. There is good turgor. No tenting. HEAD: Atraumatic. Normocephalic. No temporal or scalp tenderness. EYES: Moist and bright. Sclera and conjunctivae normal. No discharge. PERRLA. Extraocular motions intact. Gross visual acuity intact. EARS: Pinna is normal shape and contour. Clear external auditory
== END 2022-02-24 14:49 | disposition home or self-care (01) ==
PROVIDERS: Emergency Provider Nurse Practitioner Family; PCP Nurse Practitioner Family
DX: B34.9 Viral infection, unspecified (principal); I10 Essential (primary) hypertension; Z87.891 Personal history of nicotine dependence
CPT/HCPCS: 87804; 99213; G0463

== ENCOUNTER 2022-08-31 17:36 | Emergency (ER) | payer BC, SELFPAY ==
[2022-08-31 17:42] VITALS: BP 163/89; PULSE 84; RESP 20; TEMP 37.1; O2SAT 98
--- NOTE | 2022-08-31 18:11 | ED.GENADULT ---
HPI - General Adult General Chief complaint: Upper Respiratory Infection Stated complaint: Sore Throat Source: patient Mode of arrival: ambulatory Limitations: no limitations History of Present Illness HPI narrative: Patient presents for evaluation of sore throat and cough for the last 3 days. Cough is productive of yellow sputum but she denies shortness of breath. She is a former smoker and quit a month ago. No fever, chills, nausea, vomiting, otalgia or sinus congestion/drainage. She informs me that she was experiencing clear rhinorrhea in April of this year. She spoke to her primary care doctor about it. Her PCP suspected she had a CSF leak. She went to the emergency department and had a CT and lab testing that was negative. Her PCP referred her to ENT. 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 She underwent surgery about a month ago and has been doing well since that time. Related Data Home Medications Medication Instructions Recorded Confirmed amlodipine 5 mg tablet 5 mg DAILY 02/24/22 08/31/22 trazodone 100 mg tablet 100 mg HS 02/24/22 08/31/22 acetazolamide 250 mg tablet 250 mg PO TID 08/31/22 08/31/22 cetirizine 10 mg tablet 10 mg PO DAILY 08/31/22 08/31/22 cholecalciferol (vitamin D3) 10 10 mcg PO DAILY 08/31/22 08/31/22 mcg (400 unit) tablet (Vitamin D3) dulaglutide 0.75 mg/0.5 mL See Rx Instructions .Route .COMPLEX 08/31/22 08/31/22 subcutaneous pen injector (Trulicity) multivit with minerals-iron 18 tablet PO DAILY 08/31/22 mg-folic ac 400 mcg-vit K 25 mcg tablet (Adults Multivitamin) omeprazole 40 mg capsule,delayed 40 mg PO BID 08/31/22 08/31/22 release rivaroxaban 2.5 mg tablet (Xarelto) 2.5 mg PO BID 08/31/22 08/31/22 triamterene 37.5 1 tablet PO DAILY 08/31/22 08/31/22 mg-hydrochlorothiazide 25 mg tablet Allergies Allergy/AdvReac Type Severity Reaction Status Date / Time erythromycin base AdvReac Mild Vomiting Verified 08/31/22 17:54 Penicillins AdvReac Mild VOMITING Verified 08/31/22 17:54 venlafaxine [From Effexor] AdvReac Mild Confusion Verified 08/31/22 17:54 Review of Systems Review of Systems: CONSTITUTIONAL: Denies fever, chills, or sweats. EYES: Denies visual changes, redness, or discharge. ENT: Reports sore throat. denies rhinorrhea, congestion, or otalgia. CARDIOVASCULAR: Denies chest pain, palpitations, or edema. RESPIRATORY: Reports cough. Denies shortness of breath. GASTROINTESTINAL: Denies abdominal pain, nausea, vomiting, or diarrhea. GENITOURINARY: Denies dysuria or hematuria. SKIN: Denies rash or itching. MUSCULOSKELETAL: Denies back pain, joint pain, or myalgia. NEUROLOGIC: Denies headache, numbness, dizziness, or weakness. PSYCHIATRIC: Denies anxiety or depression. [facility] Past Medical History Medical History Adenomatous colon polyp Allergic rhinitis GERD (gastroesophageal reflux disease) Gout HCC (hepatocellular carcinoma) Hypertension Kidney disease Morbid obesity Pulmonary embolism Urolithiasis Vitamin D deficiency Surgical History Surgical History H/O cardiac catheterization H/O left breast biopsy H/O lymph node biopsy H/O partial mastectomy H/O tubal ligation H/O: hysterectomy History of carpal tunnel release History of lumpectomy History of salpingo-oophorectomy History of sleeve gastrectomy Hx of lithotripsy Family History Family History Mother Hypertension Crohn disease Father Hypertension Heart disease High cholesterol Other Cancer of brain Other Colon cancer Stomach cancer Grandparent Diabetes mellitus Social History Social History Smoking packs per day: 0.5 Smoking cigarettes per day: 10.0 Years smoked: 25 Smoking pack-years: 12.
== END 2022-08-31 18:10 | disposition home or self-care (01) ==
PROVIDERS: Emergency Provider Nurse Practitioner; PCP Nurse Practitioner Family
DX: J02.9 Acute pharyngitis, unspecified (principal); Z87.891 Personal history of nicotine dependence; F12.90 Cannabis use, unspecified, uncomplicated; K21.9 Gastro-esophageal reflux disease without esophagitis; M10.9 Gout, unspecified; I10 Essential (primary) hypertension; E66.01 Morbid (severe) obesity due to excess calories; Z68.43 Body mass index [BMI] 50.0-59.9, adult; Z86.711 Personal history of pulmonary embolism; E55.9 Vitamin D deficiency, unspecified; Z85.05 Personal history of malignant neoplasm of liver; Z98.84 Bariatric surgery status
CPT/HCPCS: 87081; 87880; 99213; G0463

== ENCOUNTER 2023-03-13 12:42 | Emergency (ER) | payer BC, SELFPAY ==
--- NOTE | ~2023-03-13 | XR_ITS ---
EXAMINATION: XR chest 2V DATE: 03/13/2023 13:10 INDICATION: Hypoxia and shortness of breath TECHNIQUE: PA and lateral views of the chest are obtained. COMPARISON: 05/31/2021 FINDINGS: There are minimal airspace opacities of the right lower lobe. No pleural effusion or pneumo thorax. The heart size is normal. There is a small sliding hiatal hernia. There is moderate thoracic spondylosis. IMPRESSION: 1. Minimal airspace opacities of the right lower lobe, consistent with atelectasis versus pneumonia. Reviewed, dictated and finalized at location B. E HAND IMPRESSION: 1. Minimal airspace opacities of the right lower lobe, consistent with atelecta sis versus pneumonia.
[2023-03-13 12:47] VITALS: BP 132/84; PULSE 75; RESP 20; TEMP 37; O2SAT 92
--- NOTE | 2023-03-13 13:00 | ED.GENADULT ---
HPI - General Adult General Chief complaint: Upper Respiratory Infection Stated complaint: Shortness of Breath/Cough Source: patient, RN notes reviewed and old records reviewed Mode of arrival: ambulatory Limitations: no limitations History of Present Illness HPI narrative: 47-year-old female presents to [facility] with complaint of cough and congestion for 3 days. Patient states is now having shortness of breath with activity. Patient denies lower extremity edema. Patient denies chest pain, dizziness, weakness, sore throat, fever MD complaint: cough Onset (ago): day(s) (3) Related Data Home Medications Medication Instructions Recorded Confirmed amlodipine 5 mg tablet 5 mg DAILY 02/24/22 08/31/22 trazodone 100 mg tablet 100 mg HS 02/24/22 08/31/22 acetazolamide 250 mg tablet 250 mg PO TID 08/31/22 08/31/22 cetirizine 10 mg tablet 10 mg PO DAILY 08/31/22 08/31/22 cholecalciferol (vitamin D3) 10 10 mcg PO DAILY 08/31/22 08/31/22 mcg (400 unit) tablet (Vitamin D3) dulaglutide 0.75 mg/0.5 mL See Rx Instructions .Route .COMPLEX 08/31/22 08/31/22 subcutaneous pen injector (Trulicity) multivit with minerals-iron 18 tablet PO DAILY 08/31/22 mg-folic ac 400 mcg-vit K 25 mcg tablet (Adults Multivitamin) omeprazole 40 mg capsule,delayed 40 mg PO BID 08/31/22 08/31/22 release rivaroxaban 2.5 mg tablet (Xarelto) 2.5 mg PO BID 08/31/22 08/31/22 triamterene 37.5 1 tablet PO DAILY 08/31/22 08/31/22 mg-hydrochlorothiazide 25 mg tablet amoxicillin 875 mg-potassium tablet 03/13/23 clavulanate 125 mg tablet ergocalciferol (vitamin D2) 1,250 03/13/23 mcg (50,000 unit) capsule exemestane 25 mg tablet mg 03/13/23 Allergies Allergy/AdvReac Type Severity Reaction Status Date / Time erythromycin base AdvReac Mild Vomiting Verified 03/13/23 12:47 Penicillins AdvReac Mild VOMITING Verified 03/13/23 12:47 venlafaxine [From Effexor] AdvReac Mild Confusion Verified 03/13/23 12:47 Review of Systems Constitutional: Constitutional: Reports no additional constitutional complaints, Denies body ache(s), Denies chills, Denies fatigue, Denies fever(s) and Denies headache(s) Eyes: Eyes: Reports no additional eye complaints and Denies blurry vision ENT: Reports system reviewed and no additional complaints, except as documented, Denies vertigo, Denies dizziness, Denies ear discharge, Denies otalgia, Denies facial pain, Denies headache(s), Reports nasal congestion, Reports nasal discharge, Denies sinus pain, Denies sinus pressure and Denies sore throat Cardiovascular: Cardiovascular: Reports no additional cardiovascular complaints, Denies chest pain, Denies chest pain at rest, Denies rapid heart rate and Denies dyspnea Respiratory: Respiratory: Reports no additional respiratory complaints, Reports chest congestion, Reports cough ( productive cough with green phlegm), Denies pain on inspiration, Denies pain with cough and Denies dyspnea Gastrointestinal: Gastrointestinal: Denies abdominal pain, Denies diarrhea, Denies nausea and Denies vomiting Musculoskeletal: Comments: Integumentary/Breasts: Skin/Breast: Denies rash Neurologic: Reports system reviewed and no additional complaints, except as documented, Denies vertigo, Denies dizziness and Denies headache(s) Endocrine: Endocrine: Denies fatigue PMFSH Past Medical History Medical History Adenomatous colon polyp Allergic rhinitis GERD (gastroesophageal reflux disease) Gout HCC (hepatocellular carcinoma) Hypertension Kidney disease Morbid obesity Pulmonary embolism Urolithiasis Vitamin D deficiency Surgical History Surgical History H/O cardiac catheterization H/O left breast biopsy H/O lymph node biopsy H/O partial mastectomy H/O tubal ligation H/O: hysterectomy History of carpal tunnel release History of lumpectomy History of salpingo-oop
== END 2023-03-13 13:29 | disposition home or self-care (01) ==
PROVIDERS: Emergency Provider Registered Nurse; PCP Nurse Practitioner Family
DX: J18.9 Pneumonia, unspecified organism (principal); Z20.822 Contact with and (suspected) exposure to COVID-19; Z87.891 Personal history of nicotine dependence; K21.9 Gastro-esophageal reflux disease without esophagitis; M10.9 Gout, unspecified; I10 Essential (primary) hypertension; E66.01 Morbid (severe) obesity due to excess calories; Z68.42 Body mass index [BMI] 45.0-49.9, adult; Z86.711 Personal history of pulmonary embolism; E55.9 Vitamin D deficiency, unspecified; Z85.05 Personal history of malignant neoplasm of liver; Z79.01 Long term (current) use of anticoagulants
CPT/HCPCS: 71046; 87426; 99213; C9803; G0463

== ENCOUNTER 2023-09-08 16:06 | Emergency (ER) | payer OTHER, SELFPAY ==
[2023-09-08 16:16] VITALS: BP 134/86; PULSE 80; RESP 14; TEMP 36.8; O2SAT 97
--- NOTE | 2023-09-08 17:20 | ED.GENADULT ---
HPI - General Adult General Chief complaint: Skin/Abscess/Foreign Body Stated complaint: Skin Sore Source: patient Mode of arrival: ambulatory Limitations: no limitations History of Present Illness HPI narrative: Patient presents for evaluation of a painful, swollen, erythematous lesion to posterior aspect of right thigh since last week. She has a history of abscess formations and is wondering if this is such a lesion. No fever, chills, nausea, vomiting, or drainage from the area. She is diabetic and is currently on mounjaro. Her last a1c was 6.5. Her pain is worse when sitting. She has not taken any medication to assist with her symptoms. Related Data Home Medications Medication Instructions Recorded Confirmed amlodipine 5 mg tablet 5 mg DAILY 02/24/22 09/08/23 trazodone 100 mg tablet 100 mg HS 02/24/22 09/08/23 acetazolamide 250 mg tablet 250 mg PO TID 08/31/22 09/08/23 cetirizine 10 mg tablet 10 mg PO DAILY 08/31/22 09/08/23 cholecalciferol (vitamin D3) 10 50,000 unit PO WEEKLY 08/31/22 09/08/23 mcg (400 unit) tablet (Vitamin D3) omeprazole 40 mg capsule,delayed 40 mg PO BID 08/31/22 09/08/23 release rivaroxaban 2.5 mg tablet (Xarelto) 2.5 mg PO BID 08/31/22 09/08/23 triamterene 37.5 1 tablet PO DAILY 08/31/22 09/08/23 mg-hydrochlorothiazide 25 mg tablet tirzepatide 5 mg/0.5 mL 5 mg subcut WEEKLY 09/08/23 09/08/23 subcutaneous pen injector (Mounjaro) Allergies Allergy/AdvReac Type Severity Reaction Status Date / Time erythromycin base AdvReac Mild Vomiting Verified 09/08/23 16:25 Penicillins AdvReac Mild VOMITING Verified 09/08/23 16:25 venlafaxine [From Effexor] AdvReac Mild Confusion Verified 09/08/23 16:25 Review of Systems Review of Systems: CONSTITUTIONAL: Denies fever, chills, or sweats. EYES: Denies visual changes, redness, or discharge. ENT: Denies rhinorrhea, congestion, sore throat, or otalgia. CARDIOVASCULAR: Denies chest pain, palpitations, or edema. RESPIRATORY: Denies cough or dyspnea. GASTROINTESTINAL: Denies abdominal pain, nausea, vomiting, or diarrhea. GENITOURINARY: Denies dysuria or hematuria. SKIN: Reports painful, swollen, erythematous lesion to the posterior aspect of the right MUSCULOSKELETAL: Denies back pain, joint pain, or myalgia. NEUROLOGIC: Denies headache, numbness, dizziness, or weakness. PSYCHIATRIC: Denies anxiety or depression. PMFSH Past Medical History Medical History Adenomatous colon polyp Allergic rhinitis GERD (gastroesophageal reflux disease) Gout HCC (hepatocellular carcinoma) Hypertension Kidney disease Morbid obesity Pulmonary embolism Urolithiasis Vitamin D deficiency Surgical History Surgical History H/O cardiac catheterization H/O left breast biopsy H/O lymph node biopsy H/O partial mastectomy H/O tubal ligation H/O: hysterectomy History of carpal tunnel release History of lumpectomy History of salpingo-oophorectomy History of sleeve gastrectomy Hx of lithotripsy Family History Family History Mother Hypertension Crohn disease Father Hypertension Heart disease High cholesterol Other Cancer of brain Other Colon cancer Stomach cancer Grandparent Diabetes mellitus Social History Social History Smoking packs per day: 0.5 Smoking cigarettes per day: 10.0 Years smoked: 25 Smoking pack-years: 12.50 Smoking status: Former smoker Alcohol intake: never Substance use: current Substance use type: marijuana Occupation/Education: occupation 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 HEAD: Normocephalic
== END 2023-09-08 17:20 | disposition home or self-care (01) ==
PROVIDERS: Emergency Provider Nurse Practitioner; PCP Nurse Practitioner Family
DX: L03.115 Cellulitis of right lower limb (principal); Z87.891 Personal history of nicotine dependence; F12.90 Cannabis use, unspecified, uncomplicated; K21.9 Gastro-esophageal reflux disease without esophagitis; M10.9 Gout, unspecified; I10 Essential (primary) hypertension; E66.01 Morbid (severe) obesity due to excess calories; Z68.42 Body mass index [BMI] 45.0-49.9, adult; E55.9 Vitamin D deficiency, unspecified; Z86.711 Personal history of pulmonary embolism; Z98.84 Bariatric surgery status; Z85.05 Personal history of malignant neoplasm of liver
CPT/HCPCS: 99213; G0463